=== PATIENT | female | born 1960 | race Two or more races ===

== ENCOUNTER 2017-02-16 07:04 | Day surgery (SDC) | payer MEDICAID ==
[2017-02-16] VITALS (14 sets, daily range): BP systolic 121–162; BP diastolic 56–73; PULSE 58–75; RESP 11–19; Ht 162.6 cm; Wt 61.2 kg
[~2017-02-16] VITALS: Ht 162.6 cm; Wt 61.2 kg
[~2017-02-16 07:04] MED LIST: BUPIVACAINE 0.5%/EPI (SDV) 30 ML INJ INJ ONE; CEFAZOLIN 2 GM/50 ML (PMX) 50 ML IVPB SCH; SOD CHLORIDE 0.9% 1,000 ML IV SCH
[2017-02-16] MEDS ORDERED: PROPOFOL 20 ML ONE (10:57)
[2017-02-16] MEDS ORDERED: FENTAnyl 50 MCG/ML VIAL ONE (10:58)
[2017-02-16] MEDS ORDERED: LIDOCAINE 1% (MDV) 20 ML INJ ONE (10:58)
[2017-02-16] MEDS ORDERED: MIDAZOLAM 1 MG/ML 2 ML INJ ONE (10:58)
[2017-02-16] MEDS ORDERED: BUPIVACAINE 0.5%/EPI (SDV) 30 ML INJ ONE (11:01)
[2017-02-16] MEDS ORDERED: HYDROCODONE/APAP (7.5/325) TAB PO PRN (11:30)
[2017-02-16] MEDS ORDERED: CEFAZOLIN 1 GM INJ ONE (12:14)
[2017-02-16] MEDS ORDERED: ONDANSETRON 4 MG INJ ONE (12:16)
[2017-02-16] MEDS ORDERED: DEXAMETHASONE 4 MG/ML 1 ML INJ ONE (12:16)
[2017-02-16] MEDS ORDERED: FAMOTIDINE 20 MG INJ ONE (12:16)
[2017-02-16] MEDS ORDERED: BUPIVACAINE 0.5%/EPI (SDV) 10 ML INJ ONE (12:20)
[2017-02-16] MEDS ORDERED: HYDROmorphONE (0.2 MG/ML) 10ML SYG IV ONE (13:27)
[2017-02-16] MEDS ORDERED: HYDROmorphONE (0.2 MG/ML) 10ML SYG IV PRN ×3 (13:30)
--- NOTE | 2017-02-16 14:02 | OPR ---
DATE OF OPERATION: 02/16/2017 PREOPERATIVE DIAGNOSIS: Ductal carcinoma in situ, right breast. POSTOPERATIVE DIAGNOSIS: Ductal carcinoma in situ, right breast. PROCEDURE: Right needle-directed partial mastectomy. ANESTHESIA: General. ANESTHESIOLOGIST: Dr. Peña. SURGEON: Dr. Burleson. LOAD MIXER: Dr. ALEMAN. INDICATIONS FOR PROCEDURE: The patient is a 56-year-old female who underwent surveillance mammograp hy. She was found to have a suspicious lesion in the right breast at approximately the 9 o'clock lo cation. A core biopsy confirmed ductal carcinoma in situ. She was counseled as to the need for com plete excisional biopsy. She consented and was scheduled for surgery. DESCRIPTION OF PROCEDURE: On the morning of surgery, patient presented to [facility] where she underwent localization of the lesion performed by attending radiologist, Maryann Mchugh. Subsequently, she was brought to the operating theater, placed under general en dotracheal tube anesthesia. The right breast was prepped and draped in the usual sterile fashion. A periareolar incision was made from the 6 o'clock location through the 9 o'clock location to the 12 o'clock location. Subcutaneous tissue was then dissected with cautery. The skin edges were elevat ed with skin hooks and wide circumferential dissection of the tissue associated with the wire then t ook place using cautery, taking great care to ensure adequate margin. Specimen was elevated, transe cted, oriented, and sent for radiographic confirmation of capture. Capture was confirmed. Specimen was then sent for permanent pathologic analysis. The wound was irrigated. A minimal bleeding was controlled with cautery and the skin incision was reapproximated with a 4-0 Vicryl suture in subcuti cular fashion. The patient tolerated the procedure well. The estimated blood loss was 10 mL. Ther e were no complications and the patient was transported in stable condition to the recovery room whe re a circumferential compression dressing was applied. Dictated By: ULICES JOHN/MAILE Conf#: [id number] DID#: [id number]
[2017-02-16] MEDS ORDERED: PROMETHAZINE 12.5 MG SUPP PR ONE (16:00)
== END 2017-02-16 17:46 | disposition home or self-care (01) ==
LOC: SDS 07:04
PROVIDERS: ATTEND Surgery Surgical Oncology
DX: D05.11 Intraductal carcinoma in situ of right breast (principal)
CPT/HCPCS: 19301; 88307; J0690; J1100; J1170; J2250; J2405; J3010; Z7512; Z7610